=== PATIENT | female | born 1960 | race Caucasian/White ===

== ENCOUNTER 2017-02-24 13:14 | Emergency (ER) | payer MEDICAID ==
[~2017-02-24] VITALS: Ht 154.9 cm; Wt 89.8 kg
[~2017-02-24 13:14] MED LIST: CITALOPRAM40 M1 PO; CYCLOBENZ5 MG PO; DARVOCET-N 1001 EACH PO; DIAZEPAM10 M1 PO; GABAPENTIN300 M1 PO; LISINOPRIL/HCTZ1 TA3 PO; NICODERM C21 MG/24 H TD; TRAZODONE 50MG50 MG PO; VICODIN 7.5/501 EACH PO
--- OUTSIDE RECORDS SUMMARY | 2017-02-24 13:21 | External Medical Summary Rpt | CCD ---
Author Author [facility] Organization [facility] Address Unknown Phone Unavailable Purpose Continuity of Care Document - through 2016
--- OUTSIDE RECORDS SUMMARY | 2017-02-24 13:21 | External Medical Summary Rpt | CCD ---
Demographics Preferred Language Uzbek Marital Status Unknown Yarsani Affiliation Unknown Race Unknown Ethnic Group Unknown Author Author , AJ ROCHA Address Unknown Phone Immunization No patient found.
--- OUTSIDE RECORDS SUMMARY | 2017-02-24 13:21 | External Medical Summary Rpt | CCD ---
Author Author , AJ ROCHA Address Unknown Phone [email or web address] Purpose Continuity of Care Document - through 2016 Problems Code Diagnosis DOS Provider Status I16.9 HYPERTENSIV E CRISIS, UNSPECIFIED R07.9 CHEST PAIN, UNSPECIFIED
--- OUTSIDE RECORDS SUMMARY | 2017-02-24 13:21 | External Medical Summary Rpt | CCD ---
Demographics Preferred Language Citizen Of [place] Marital Status Unknown Pentecostal Affiliation Unknown Race Unknown Ethnic Group Unknown Author Author , AJ ROCHA Address Unknown Phone Immunization No patient found.
--- OUTSIDE RECORDS SUMMARY | 2017-02-24 13:21 | External Medical Summary Rpt | CCD ---
Author Author , AJ ROCHA Address Unknown Phone [email or web address] Purpose Continuity of Care Document - through 2016 Problems Code Diagnosis DOS Provider Status I16.9 HYPERTENSIV E CRISIS, UNSPECIFIED R07.9 CHEST PAIN, UNSPECIFIED
[2017-02-24] MEDS ORDERED: FLONASE ALLERG9.9 ML NS (14:52)
[2017-02-24] MEDS ORDERED: ZITHROMAX Z-PA250 M2 PO (14:52)
[2017-02-24 14:54] VITALS: BP 116/80
--- NOTE | 2017-02-24 14:54 | Urgent Treatment Center Report ---
History of Present Issue Date/Time Seen by Provider 02/24/17 2013 Visit Reason Pt arrived:Walked Presenting Problem:PT C/O SINUS CONGESTION AND PRESSURE, CHEST CONGESTION, COUGH , HOARSE VOICE Location if Accident: Onset of symptoms date/time:/ or onset unknown for:MEDICAL HX UNKNOWN Have you (or family members/close friends) recently traveled outside the [place]? N If Yes, where/when: Have you had exposure to infectious disease within the past month? TB? Other? Specify: Source patient, RN notes reviewed Exam Limitations no limitations Comment 86-year-old female presents for sore throat, nasal congestion, and sinus pressure ALLERGIES Coded Allergies: MDX - Codeine (Codeine) (Mild, NA-NAUSEA/VOMITING 12/13/08) Converted from Ingredient Allergy: Codeine Home Medications Active Scripts Lisinopril & Hctz (Lisinopril-Hctz 10-12.5 MG Tab) 1 TAB PO DAILY #30 TAB Prov: 06/13/14 Nicotine (Nicoderm Cq) 21 MG TD DAILY #28 PATCH Prov: 06/13/14 Reported Medications Citalopram Hydrobromide (Citalopram HBr) 20 MG PO DAILY #30 Gabapentin 300 MG PO DAILY #30 TRAZODONE HCL (Trazodone HCl) 50 MG PO QHS PRN SLEEP HYDROCODONE/ACETAMINOPHEN (Hydrocodon-Acetaminoph 7.5-500) 1 TAB PO Q8HP PRN PAIN Diazepam 10 MG PO DAILY #90 Cyclobenzaprine Hcl (Cyclobenzaprine) 5 MG PO BID #90 History Medical History General CAD? No Angina: No HI: No Hypertension? No Hyperlipidemia? No CHF? No DVT? No PE? No COPD? No Asthma? No Anemia? No GERD? No Gastric ulcers? No GI Bleed? No Hernia? No Thyroid Problems? No Hypothyroidism? No CVA? No Seizures? No Diabetes? No UTI? No Stones? No BPH? No GB Disease: No Nephritic Syndrome? No Asplenia? No Hepatitis? No Sickle Cell Disease? No Arthritis? Yes Migraines? No Cataracts? No Glaucoma? No MRSA? No HIV? No TB? No Anxiety? No Depression? No Cancer? No More? No Immunization HX DT/Tetanus > 10 YRS Flu Refused Pneumonia Refuses Surgical Hx Previous Surgery?Y HYSTERECTOMY TUBAL LIGATION LUMP REMOVED FROM [facility] Family History Family HX Diabetes Yes CAD Yes Hypertension Yes Hyperlipidemia Yes Cancer Yes TB No Social History Smoking Hx Smoker: Current Every Day Smoker Tobacco: Yes Type Cigarettes Packs/day < 1 Pack Alcohol Alcohol: No Review of Systems All Other Systems Reviewed and Negative ENT see HPI, nose discharge, nose congestion, throat pain. Physical Exam Vital Signs Vital Signs Date Time Temp Pulse Resp B/P Pulse O2 O2 Flow FiO2 Ox Delivery Rate 02/24 1430 97.5 96 20 116/80 97 - WBC >12,000 or <4,000 or 10% bands? 2 or more SIRS Criteria Met? B/P:116/80 MAP:92 Creatinine >2.0? UA output<0.5ml/kg/hr for 2 hrs? Platelet count >100,000? Lactate >2.0mmol/1? INR >1.2 or PTT > than 60 sec? Evidence of Organ Dysfunction? Provider documented clinical suspician of infection? Sepsis Criteria Count: 2 Sepsis Risk: General Appearance normal appearance, no apparent distress Ear, Nose, Throat hearing grossly normal, sinus pain/drainage, nasal congestion, pharyngeal erythema Neck normal inspection, full range of motion Respiratory Status Yes: trachea midline, chest symmetrical, non tender chest. No: respiratory distress. Lung Sounds bilateral: normal breath sounds, lungs clear. Cardiovascular normal exam, regular rate/rhythm Neurologic alert, flare breaker II-XII nml as tested, normal exam, oriented x 3 Medical Decision Making LABS/Meds/Orders Pt receiving controlled substance in ED? No Departure Departure Time of Disposition 1450 Disposition DC Home or Self Care(routine) Clinical Impression Primary Impression: Acute non-recurrent maxillary sinusitis Condition STABLE Referrals Jet SHANNON,Juan (Family) Patient Instructions Sinusitis Additional Instructions Medications as ordered Tylenol and Motrin as needed for pain or fever Follow-up with PCP this week Symptoms worsen or do not improve return or be seen in ER Medications discussed with patient Discharge Counseling Counseled pt/family regarding diagnosis, medications/RX, home care, follow up needs Prescriptions Current Visit Scripts Azithromycin (Zithromax) 250 MG PO DAILY #6 TAB USE DIRECTED. Fluticasone Propionate (Flonase Allergy Relief) 9.9 ML NS DAILY 14 Days 1 spray each nostril daily at [id number]
== END 2017-02-24 14:55 | disposition home or self-care (01) ==
LOC: UTC 13:14
DX: J01.00 Acute maxillary sinusitis, unspecified (principal); F17.210 Nicotine dependence, cigarettes, uncomplicated